=== PATIENT | male | born 2000 | race Caucasian/White ===

== ENCOUNTER 2018-10-28 17:25 | Emergency (ER) | payer BC, OTHER ==
[~2018-10-28] VITALS: Ht 180.3 cm; Wt 90.0 kg
[2018-10-28 17:58] VITALS: BP 134/85
[2018-10-28] MEDS ORDERED: CEPH-572 PO (19:17)
== END 2018-10-28 19:24 | disposition home or self-care (01) ==
LOC: ER 17:26
DX: J02.0 Streptococcal pharyngitis (principal); Z88.0 Allergy status to penicillin
CPT/HCPCS: 99284